=== PATIENT | female | born 1970 | race Two or more races ===

== ENCOUNTER 2020-04-06 14:10 | Outpatient (CLI) | payer OTHER | END 2020-04-06 14:25 | disposition home or self-care (01) | LOC: RAD 14:10 | PROVIDERS: ATTEND Physical Medicine & Rehabilitation | DX: M79.675 Pain in left toe(s) (principal) ==

== ENCOUNTER → 2024-03-15 | Emergency (ER) | payer OTHER | END | disposition left against medical advice (07) | LOC: ER 08:35 | DX: Z53.21 Procedure and treatment not carried out due to patient leaving prior to being seen by health care provider (principal) ==

== ENCOUNTER 2024-05-31 07:47 | Day surgery (SDC) | payer OTHER ==
[2024-05-26 12:11] VITALS: BP 111/75
[~2024-05-31] VITALS: Ht 162.6 cm; Wt 49.9 kg
[2024-05-31] MEDS ORDERED: POVIDONE-IODINE 118 ML BOTT TOP ONE (13:45)
[2024-05-31] MEDS ORDERED: IBU600 MG PO (14:04)
== END 2024-05-31 18:05 | disposition home or self-care (01) ==
LOC: CIR.AMB 07:47
PROVIDERS: ATTEND Obstetrics & Gynecology Gynecology
DX: N84.0 Polyp of corpus uteri (principal); N95.0 Postmenopausal bleeding; Z88.6 Allergy status to analgesic agent; H52.10 Myopia, unspecified eye